=== PATIENT | male | born 1990 | race Caucasian/White ===

== ENCOUNTER 2016-08-09 18:04 | Emergency (ER) | payer SELFPAY ==
[~2016-08-09] VITALS: Ht 185.4 cm; Wt 124.5 kg
[~2016-08-09 18:04] MED LIST: AMOXICILLIN 8751 TAB PO; CEPHALEXIN500 M1 PO; CIPRO 500MG TA500 MG PO; FLEXERIL10 MG PO; LEVAQUIN 5500 MG/TA1 PO; LORTAB 5/500 501 TAB PO; NO HOME MEDICATIONS; NORCO 325 MG-51 TAB PO; PERCOCET 325 MG1 TAB PO; PERCOCET 5/321 UDTAB PO; PHENERGAN 25 TA25 MG PO; POLYMYXIN B/TRIMETH OS; TUSS PO; ULTRAM 50MG TAB50 MG PO; ZOFRAN 4MG T4 MG/TAB PO; ZOFRAN4 M1 PO; pain med
[2016-08-09 18:09] VITALS: BP 148/89; PULSE 98; TEMP 99.3
[2016-08-09] MEDS ORDERED: AMOXICILLIN 50500 MG PO (19:26)
[2016-08-09] MEDS ORDERED: ULTRAM 50MG TAB50 MG PO (19:26)
== END 2016-08-09 19:33 | disposition home or self-care (01) ==
LOC: COL.ER 18:04
DX: K08.89 Other specified disorders of teeth and supporting structures (principal)

== ENCOUNTER 2018-06-07 13:37 | Emergency (ER) | payer SELFPAY ==
[~2018-06-07] VITALS: Ht 185.4 cm; Wt 124.5 kg
[~2018-06-07 13:37] MED LIST changes: +AMOXICILLIN 50500 MG PO
[2018-06-07 13:38] VITALS: BP 136/82; TEMP 98.2
[2018-06-07] MEDS ORDERED: AMOXICILLIN 50500 MG PO (14:05)
[2018-06-07] MEDS ORDERED: NORCO 325 MG-7.1 TAB PO (14:07)
[2018-06-07 14:30] VITALS: PULSE 68
== END 2018-06-07 14:33 | disposition home or self-care (01) ==
LOC: COL.ER 13:37
DX: K02.9 Dental caries, unspecified (principal); F17.220 Nicotine dependence, chewing tobacco, uncomplicated; Z90.89 Acquired absence of other organs

== ENCOUNTER 2019-01-27 22:12 | Emergency (ER) | payer SELFPAY ==
[~2019-01-27] VITALS: Ht 188 cm; Wt 122.7 kg
[~2019-01-27 22:12] MED LIST changes: +NORCO 325 MG-7.1 TAB PO
[2019-01-27 22:21] VITALS: BP 165/89; PULSE 64; TEMP 98.5
== END 2019-01-27 23:10 | disposition home or self-care (01) ==
LOC: COL.ER 22:12
DX: Z20.2 Contact with and (suspected) exposure to infections with a predominantly sexual mode of transmission (principal); Z71.1 Person with feared health complaint in whom no diagnosis is made